=== PATIENT | male | born 1965 | race American Indian/Alaskan Native ===

== ENCOUNTER 2016-12-06 10:54 | Emergency (ER) | payer MEDICARE ==
[2016-12-06 12:31] LABS: Basophils % (Auto) 0.8 % (0.0-1.8); Eosinophils % (Auto) 0.4 % (0.0-4.3); Hemoglobin 15.6 gm/dl (11.8-15.2); Mean Corpuscular HGB Conc 34 % (32-34); Mean Corpuscular Hemoglobin 31 pg (28-32); Mean Corpuscular Volume 92 fl (84-94); Platelet Count 226 K/mm3 (140-440); Red Blood Count 5.01 M/mm3 (3.65-5.03); Red Cell Distribution Width 12.5 % (13.2-15.2); White Blood Count 9.1 K/mm3 (4.5-11.0)
[2016-12-06 12:50] LABS: Anion Gap 19 mmol/L; Blood Urea Nitrogen 15 mg/dL (9-20); Calcium 9.6 mg/dL (8.4-10.2); Carbon Dioxide 24 mmol/L (22-30); Chloride 98.5 mmol/L (98-107); Glucose 315 mg/dL (75-100); Potassium 3.5 mmol/L (3.6-5.0); Sodium 138 mmol/L (137-145)
[2016-12-06] MEDS ORDERED: NACL 0.9% 1000 ML 1,000 ML IV ONE ×2 (16:31)
--- NOTE | 2016-12-06 16:31 | Emergency Department Report ---
HPI - General Chief Complaint: Psych Time Seen by Provider: 12/06/16 16:22 - HPI HPI: Chief complaint: Patient states he is unable to control anything HPI: Patient is a 51-year-old male with a history of bipolar disorder and anxiety states that he can't control anything. Patient states he keeps defecating on himself and states all his organs have been removed. Patient denies chest pain to me and does not complain of abdominal pain either. Patient refuses to tell me if his medical problems are his medications or whether or not he is taking them. Mode of arrival: [EMS] Source: [Patient] nursing notes Began: Unable to assess Duration: Unable to assess Context: Unable to assess Quality: Unable to assess Severity: Improved with: Unable to assess Worsened with: Unable to assess Associated signs and symptoms: Unable to assess ED Past Medical Hx - Past Medical History Previous Medical History?: Yes Hx Heart Attack/AMI: Yes Hx Psychiatric Treatment: Yes (Bipolar) Additional medical history: thyroid - Surgical History Past Surgical History?: No - Social History Smoking Status: Current Every Day Smoker Substance Use Type: Alcohol - Medications Home Medications: Home Medications Medication Instructions Recorded Confirmed Last Taken Type No Known Home Medications [No 12/06/16 12/06/16 Unknown History Reported Home Medications] ED Review of Systems ROS: Stated complaint: ANXIETY/CP/JESS Other details as noted in HPI Comment: Unobtainable due to pts medical conditions (patient uncooperative) Physical Exam - Physical Exam Vital Signs: Vital Signs 12/06/16 12/06/16 12:05 15:33 Temperature 98 F Pulse Rate 61 Respiratory 18 Rate Blood Pressure 160/101 O2 Sat by Pulse 96 99 Oximetry Physical Exam: GENERAL: The patient is well-developed well-nourished white male lying quietly on the stretcher mattress on the floor. As soon as I began speaking with the patient started moaning and rubbing his stomach . Patient denying chest pain and then after while refusing to answer any questions. HEENT: Normocephalic. Atraumatic. Extraocular motions are intact. Patient has moist mucous membranes. NECK: Supple. No meningitic signs are noted. There is no adenopathy noted. CHEST/LUNGS: Clear to auscultation. There is no respiratory distress noted. HEART/CARDIOVASCULAR: Regular. There is no tachycardia. There is no gallop rub or murmur. ABDOMEN: Abdomen is soft, nontender. Patient has normal bowel sounds. There is no abdominal distention. SKIN: There is no rash. There is no edema. There is no diaphoresis. NEURO: The patient is awake, alert, and oriented to name and situation. The patient has no focal neurologic deficits. MUSCULOSKELETAL: There is no tenderness or deformity. There is no limitation range of motion. There is no evidence of acute injury. ED Course Vital Signs 12/06/16 12/06/16 12:05 15:33 Temperature 98 F Pulse Rate 61 Respiratory 18 Rate Blood Pressure 160/101 O2 Sat by Pulse 96 99 Oximetry - Reevaluation(s) Reevaluation #1: 12/06/16 Mental health crisis was called to evaluate the patient. Patient appears delusional stating that all his organs have been removed and is in general uncooperative to his evaluation. 12/06/16 19:30 Patient is currently being evaluated by mental health care worker. We'll put patient's back on his regular medications. 12/06/16 19:32 Patient was given 2 L normal saline and 5 units of regular insulin IV with improvement of his blood sugar. Call was placed to [facility] pharmacy and listed patient's medications were obtained and he will be placed back on them. ED Medical Decision Making - Lab Data Result diagrams: 12/06/16 12:18 12/06/16 12:18 Laboratory Tests 12/06/16 12/06/16 12:18 12:18 Troponin T < 0.010 Plasma/Serum Alcohol < 0.01 Laboratory Tests 12/06/16 12/06/16 12/06/16 12:18 16:07 17:25 POC Glucose 278 H Troponin T < 0.010 < 0.010 - EKG Data -: EKG Interpreted by Me EKG shows normal: sinus rhythm Rate: bradycardia (58) - EKG Data When compared to previous EKG there are: previous EKG unavailable Interpretation: nonspecific ST-T wave rusty, LVH Critical care attestation.: If time is entered above; I have spent that time in minutes in the direct care of this critically ill patient, excluding procedure time. ED Disposition Clinical Impression: Hyperglycemia Bipolar disorder Qualifiers: Active/Remission status: remission status unspecified Qualified Code(s): F31.9 - Bipolar disorder, unspecified Disposition: MEDICAL SCREENING EXAM-CONT Is pt being admited?: No Does the pt Need Aspirin: No Condition: Undetermined Referrals: PRIMARY CARE,MD [Primary Care Provider] - 3-5 Days Time of Disposition: 19:32 (patient awaiting clearance by mental health crisis.)
[2016-12-06 20:27] LABS: Urine Drugs of Abuse Note Disclamer
[2016-12-06 20:36] LABS: Bilirubin,Urine NEG (Negative); Blood,Urine NEG (Negative); Ketones,Urine 20 mg/dL (Negative); Leukocyte Esterase,Urine NEG (Negative); Mucus,Urine FEW /HPF; Nitrite,Urine NEG (Negative); Protein,Urine <15 mg/dL mg/dL (Negative); WBC,Urine < 1.0 /HPF (0.0-6.0)
[2016-12-06] MEDS ORDERED: NON-FORMULARY (Budesoni/Formotero 160-4.5(Nf) 2 PUFF) IH SCH (22:00)
[2016-12-06] MEDS: GLUCOPHAGE PO SCH (22:55)
[2016-12-06] MEDS: WELLBUTRIN PO SCH (22:55)
[2016-12-06] MEDS: ZOCOR PO SCH (22:55)
[2016-12-06] MEDS: SYNTHROID PO SCH (22:55)
[2016-12-06] MEDS: AMBIEN PO SCH (22:55)
[2016-12-06] MEDS: DESYREL PO SCH (22:55)
[2016-12-07] MEDS: LEVEMIR SUB-Q SCH ×2 (07:08→23:18)
[2016-12-07] MEDS: PULMICORT IH SCH ×2 (08:00→20:56)
[2016-12-07] MEDS: BROVANA NEBU IH SCH ×2 (08:00→20:56)
--- NOTE | 2016-12-07 11:09 | Consultation ---
History of Present Illness - Reason for Consult Consult date: 12/07/16 Reason for consult: Mental Health Evaluation Requesting physician: TASHA COLE - Chief Complaint Chief complaint: "My organs are not well" - History of Present Psychiatric Illness Patient is a 51-year-old male with a history of bipolar disorder and anxiety states that he can't control anything. Upon arrival to patient's room he was resting. Patient states, "My organs isn't working well." At this time patient is presenting with delusional and tangential thoughts. He also states that his eyes are filled with cancer and he only can breath through a hole in his neck. There's no apparent hole in his neck on assessment. Patient avoids questions about his overall medical and mental health hx. He denies SI/HI's or AVH's at this time. Medications and Allergies Allergies Allergy/AdvReac Type Severity Reaction Status Date / Time No Known Allergies Allergy Unverified 12/06/16 12:04 Home Medications Medication Instructions Recorded Confirmed Last Taken Type Budesoni/Formotero 160-4.5(Nf) 2 puff IH BID 12/06/16 12/06/16 Unknown History [Symbicort 160-4.5 (Nf)] Insulin Detemir [Levemir] 100 unit SQ QHS 12/06/16 12/06/16 Unknown History Levothyroxine [Synthroid] 25 mcg PO QHS 12/06/16 12/06/16 Unknown History Simvastatin [Zocor TAB] 20 mg PO QHS 12/06/16 12/06/16 Unknown History Wellbutrin 100 mg PO BID 12/06/16 12/06/16 Unknown History Zolpidem [Ambien] 10 mg PO QHS 12/06/16 12/06/16 Unknown History metFORMIN [Glucophage] 500 mg PO BID 12/06/16 12/06/16 Unknown History traZODone [Desyrel] 50 mg PO QHS 12/06/16 12/06/16 Unknown History Active Meds: Active Medications Arformoterol Tartrate (Brovana Nebu) 15 mcg IH Q12HRT [facility] Budesonide (Pulmicort) 1 mg IH Q12HRT [facility] Bupropion HCl (Wellbutrin) 100 mg PO BID [facility] Last Admin: 12/06/16 22:55 Dose: 100 mg Insulin Detemir (Levemir) 100 units SUB-Q QHS [facility] Last Admin: 12/07/16 07:08 Dose: Not Given Levothyroxine Sodium (Synthroid) 25 mcg PO QHS [facility] Last Admin: 12/06/16 22:55 Dose: 25 mcg Metformin HCl (Glucophage) 1,000 mg PO BID [facility] Last Admin: 12/06/16 22:55 Dose: 1,000 mg Simvastatin (Zocor) 20 mg PO QHS [facility] Last Admin: 12/06/16 22:55 Dose: 20 mg Trazodone HCl (Desyrel) 50 mg PO QHS [facility] Last Admin: 12/06/16 22:55 Dose: 50 mg Zolpidem Tartrate (Ambien) 10 mg PO QHS [facility] Last Admin: 12/06/16 22:55 Dose: 10 mg Past psychiatric history - Past Medical History Past Medical History: diabetes Past Surgical History: Other (Unobtainable) - past Psychiatric treatment and history Psych: Anxiety, Bipolar psychiatric treatment history: Per patient been to multiple inpatient psychiatric services. Denies fam psy hx.. - Social History Social history: other (Live in [facility]) Mental Status Exam - Vital signs Last Vital Signs Temp 98.8 F 12/07/16 04:25 Pulse 64 12/07/16 04:25 Resp 18 12/07/16 07:21 BP 142/93 12/07/16 04:25 Pulse Ox 99 12/07/16 07:21 - Exam Narrative exam: ROS (+) delusional Orientation: place, person Affect: flat Mood: congruent with affect Thought content: delusions Thought Process: Tangential, Flight of Ideas Perceptions: none Speech: other (Low rate) Concentration: other (intact) Motor activity: other (ambulatory) Level of consciousness: alert Memory: Intact Sleep Symptoms: Difficulty Falling Asleep, None ("I havent slept in days") Interaction: cooperative Results Result Diagrams: 12/06/16 12:18 12/06/16 12:18 Abnormal lab results 12/06/16 12/06/16 12/06/16 Range/Units 12:18 12:18 17:25 Hgb 15.6 H (11.8-15.2) gm/dl Hct 46.0 H (35.5-45.6) % RDW 12.5 L (13.2-15.2) % Seg Neutrophils % 72.1 H (40.0-70.0) % Potassium 3.5 L (3.6-5.0) mmol/L Creatinine 0.6 L (0.8-1.5) mg/dL Glucose 315 H (75-100) mg/dL POC Glucose 278 H (70-105) 12/06/16 Range/Units 22:03 Hgb (11.8-15.2) gm/dl Hct (35.5-45.6) % RDW (13.2-15.2) % Seg Neutrophils % (40.0-70.0) % Potassium (3.6-5.0) mmol/L Creatinine (0.8-1.5) mg/dL Glucose (75-100) mg/dL POC Glucose 188 H (70-105) All other labs normal. Assessment and Plan Assessment and plan: Impression: Patient presents with delusional and tangential thoughts about his internal organs. Also, he states that his eyes are filled with cancer. Recommendation: Continue 1013 and placement to inpatient psychiatric services.
[2016-12-07] MEDS: GLUCOPHAGE PO SCH ×2 (11:39→23:18)
[2016-12-07] MEDS: WELLBUTRIN PO SCH ×2 (11:40→23:18)
[2016-12-07] MEDS: DESYREL PO SCH (23:17)
[2016-12-07] MEDS: AMBIEN PO SCH (23:17)
[2016-12-07] MEDS: ZOCOR PO SCH (23:18)
[2016-12-07] MEDS: SYNTHROID PO SCH (23:18)
[2016-12-08] MEDS: BROVANA NEBU IH SCH ×2 (10:18→20:46)
[2016-12-08] MEDS: PULMICORT IH SCH ×2 (10:18→20:46)
[2016-12-08] MEDS: GLUCOPHAGE PO SCH ×2 (10:27→23:00)
[2016-12-08] MEDS: WELLBUTRIN PO SCH (10:28)
--- NOTE | 2016-12-08 13:48 | Progress Note ---
Subjective - Reason for Consult Consult date: 12/08/16 Reason for consult: psychiatric follow up - Chief Complaint Chief complaint: "My insides are dying" Patient is a 51-year-old male with a history of bipolar disorder and anxiety. Staff report he is not attending to his ADLs. He required assistance getting dressed. Per the notes last night he was belligerent. He continues to have bizarre somatic delusions. He appears to have thought blocking. Mental Status Exam - Vital signs Last Vital Signs Temp 98.1 F 12/08/16 07:40 Pulse 70 12/08/16 07:40 Resp 18 12/08/16 07:40 BP 113/73 12/08/16 07:40 Pulse Ox 98 12/08/16 07:40 - Exam Narrative exam: Unable to assess memory, sleep, suicidal or homicidal ideation. He did not answer questions but repeatedly stated his insides are dying. Orientation: person Affect: depressed Mood: congruent with affect Thought content: delusions, somatic Thought Process: Thought Blocking Perceptions: other (unable to assess) Speech: other (delayed) Concentration: other (unable to assess) Motor activity: lethargic Level of consciousness: alert Appetite: decreased (he is refusing to eat) Interaction: uncooperative Assessment and Plan Impression: Exacerbation of chronic mental illness. Psychotic symptoms are impairing his daily functioning. Recommendation: Encourage by mouth intake Transfer to inpatient psychiatric facility. Start Risperdal 1mg at bedtime for psychotic symptoms.
--- NOTE | 2016-12-08 15:18 | Event Note ---
Date: 12/08/16 vital Signs are reviewed. Patient pending psychiatric placement. Psychiatric consultation is appreciated. Patient is pending psychiatric placement. Vital Signs 12/06/16 12/06/16 12/07/16 12:05 15:33 04:25 Temperature 98 F 98.8 F Pulse Rate 61 64 Respiratory 18 18 Rate Blood Pressure 160/101 Blood Pressure 142/93 [Right] O2 Sat by Pulse 96 99 99 Oximetry 12/07/16 12/07/16 12/07/16 07:21 09:00 20:00 Temperature 98.5 F 97.8 F Pulse Rate 66 66 Respiratory 18 18 18 Rate Blood Pressure Blood Pressure 143/89 132/53 [Right] O2 Sat by Pulse 99 99 96 Oximetry 12/08/16 07:40 Temperature 98.1 F Pulse Rate 70 Respiratory 18 Rate Blood Pressure Blood Pressure 113/73 [Right] O2 Sat by Pulse 98 Oximetry
[2016-12-08 21:10] VITALS: BP 175/95
[2016-12-08] MEDS ORDERED: RisperDAL PO SCH (22:00)
[2016-12-08] MEDS: DESYREL PO SCH (23:00)
[2016-12-08] MEDS: LEVEMIR SUB-Q SCH (23:00)
[2016-12-09] MEDS: SYNTHROID PO SCH (00:10)
[2016-12-09] MEDS: AMBIEN PO SCH (00:10)
[2016-12-09] MEDS: ZOCOR PO SCH (00:44)
[2016-12-09] MEDS: WELLBUTRIN PO SCH (00:46)
== END 2016-12-09 03:00 | disposition other institution (70) ==
LOC: EEVIPCON 10:54 → ED 10:54
DX: F31.9 Bipolar disorder, unspecified (principal); R73.9 Hyperglycemia, unspecified; I25.2 Old myocardial infarction; F17.200 Nicotine dependence, unspecified, uncomplicated
CPT/HCPCS: 36415; 80048; 80307; 81001; 82962; 84484; 85025; 93005; 93010; 96361; 96372; 96374; 99285; G0480; J7030; 80320; J1815; J1818

== ENCOUNTER 2017-08-03 19:17 | Emergency (ER) | payer MEDICARE ==
[2017-08-03 20:47] VITALS: BP 129/69
== END 2017-08-04 01:00 | disposition left against medical advice (07) ==
LOC: ED 19:17
DX: M54.9 Dorsalgia, unspecified (principal); Z53.21 Procedure and treatment not carried out due to patient leaving prior to being seen by health care provider

== ENCOUNTER 2017-08-04 08:54 | Emergency (ER) | payer MEDICARE ==
[2017-08-04 09:06] VITALS: BP 159/99
== END 2017-08-04 10:20 | disposition left against medical advice (07) ==
LOC: ED 08:54
DX: M54.9 Dorsalgia, unspecified (principal); Z53.21 Procedure and treatment not carried out due to patient leaving prior to being seen by health care provider
CPT/HCPCS: 82962